=== PATIENT | male | born 1990 | race Caucasian/White ===

== ENCOUNTER 2018-12-06 17:54 | Emergency (ER) | payer SELFPAY, OTHER | END 2018-12-06 22:01 | disposition left against medical advice (07) | LOC: FTE 22:01 | DX: Z53.21 Procedure and treatment not carried out due to patient leaving prior to being seen by health care provider (principal) ==

== ENCOUNTER 2018-12-08 14:09 | Emergency (ER) | payer OTHER ==
[2018-12-08] MEDS ORDERED: traMADol-APAP 37.5-325 1 TAB PO (17:30)
== END 2018-12-08 17:14 | disposition home or self-care (01) ==
LOC: FTE 14:09
DX: H60.502 Unspecified acute noninfective otitis externa, left ear (principal)
CPT/HCPCS: 99283; Z7502